=== PATIENT | male | born 1990 | race Two or more races ===

== ENCOUNTER 2018-05-03 21:49 | Emergency (ER) | payer OTHER ==
[2018-05-03] MEDS ORDERED: Ketorolac 60 MG/2 ML SDV IM ONE (22:49)
--- NOTE | 2018-05-04 00:23 | ER ---
REASON FOR EMERGENCY ROOM VISIT: Chest wall pain. HISTORY OF PRESENT ILLNESS: This previously healthy 28-year-old man was lifting weights tonight and he was doing bench presses with 180 pounds. The weight slipped out of his hand and the bar struck across his lower rib cage causing pain. He wants to make sure that he has not sustained any significant injury to this area. He has pain across the lower anterior chest in a bandlike fashion just below the xiphoid continuing from the anterior axillary line on 1 side to the anterior axillary line on the other. Most of his pain seems to be toward the midline. He denies any real shortness of breath, but it does hurt somewhat with a deep breath and with coughing. He has not had any diaphoresis. He denies any abdominal pain. PAST MEDICAL HISTORY: Unremarkable. CURRENT MEDICATIONS: None. ALLERGIES: None to medications. PHYSICAL EXAMINATION: GENERAL: He is afebrile. VITAL SIGNS: Pulse of 94, blood pressure 154/74, O2 sats 98%, respiratory rate 16. NECK: There is no JVD. Trachea is midline. CHEST: He has some mild tenderness on palpation of his costal margin just below the xiphoid bilaterally. There is no palpable crepitus. There is no clicking or bony crepitus as well. No evidence of subcutaneous air. There is no obvious nemo or contusion at this point. Chest is clear to auscultation with good air exchange bilaterally. Equal breath sounds are noted. DIAGNOSTIC DATA: Chest x-ray shows no evidence of pneumo or hemothorax. No pleural effusion. I cannot identify any fractures. A 12 lead EKG showed no acute changes or injury pattern. IMPRESSION: Soft tissue injury (contusions). Possibly, some rib fracture exists that is not recognized, but the treatment is the same. PLAN: I offered him IM Toradol and he would rather just take ibuprofen. I told him to expect some bruising, but if he experiences increased pain or shortness of breath, he should be seen again. He understands. All questions were answered. PALAK /[id number] MOIRA
--- NOTE | 2018-05-04 07:31 | CR ---
Chest: Two views of the chest were obtained. Comparison: Prior chest x-ray of 10/02/13. Heart size and mediastinum are normal. Lungs are clear. Bony structures are unremarkable. Impression: 1. Nothing acute is seen on two-view chest x-ray. Diagnostic code #1
== END 2018-05-03 23:05 | disposition home or self-care (01) ==
LOC: JD.ED 21:49
DX: S20.212A Contusion of left front wall of thorax, initial encounter (principal); S20.211A Contusion of right front wall of thorax, initial encounter; W20.8XXA Other cause of strike by thrown, projected or falling object, initial encounter
CPT/HCPCS: 71046; 71046-26; 93005; 99282; 99284-25